=== PATIENT | male | born 1990 ===

== ENCOUNTER → 2018-02-20 | Outpatient (REF) ==
[2018-02-20 18:35] LABS: SOURCE, BODY FLUID OTHER; SYNOVIAL FLUID COLOR YELLOW (YELLOW)
[2018-02-20 19:43] LABS: CRYSTALS, BODY FLUID NONE SEEN (NONE SEEN)
== END ==
LOC: M LAB REF 16:56
DX: Z00.00 Encounter for general adult medical examination without abnormal findings (principal)